=== PATIENT | male | born 1955 | race Caucasian/White ===

== ENCOUNTER 2016-12-31 18:00 | Emergency (ER) | payer BC ==
--- NOTE | 2016-12-31 18:12 | EDM.PDOC ---
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 Symptoms began about 21:00 hours yesterday evening at work with the patient leaving work early. He has had some mild nonproductive cough and nasal drainage during the last week with no known exposure to infection. He did receive an influenza booster this season. The patient denies any chest pain/pressure, heart flutter, dizziness, orthostasis, orthopnea, diaphoresis, paresthesias, recent decreased exercise tolerance, or any other anginal-type symptoms. No recent history of abdominal pain, heartburn, nausea, diarrhea, melena, gross hematochezia, or any food intolerance, including fatty foods, etc.. Onset: Gradual Onset Date: 12/31/16 Onset Time: 21:00 Duration: Getting Worse, Other (As above) Location: Reports: Generalized (Arthralgias) Quality: Reports: Ache, Same as Previous Episode Severity: Moderate Improves with: Reports: None Worsens with: Reports: None Context: Reports: Other (As above) Associated Symptoms: Reports: Cough, Fever/Chills. Denies: Confusion, Chest Pain, cough w sputum, Diaphoresis, Headaches, Loss of Appetite, Malaise, Nausea/ Vomiting, Rash, Seizure, Shortness of Breath, Syncope, Weakness Treatments [employer]: Reports: Other (see below) (None) Sore Throat Pain Score (Numeric/FACES): 8 - Related Data Allergies Allergy/AdvReac Type Severity Reaction Status Date / Time No Known Allergies Allergy Verified 12/31/16 18:24 Home Meds: Home Meds Aspirin [Ecotrin] 81 mg PO DAILY 05/11/14 [History] Ubidecarenone [Co Q-10] 1 tab PO DAILY 05/10/15 [History] Cholecalciferol (Vitamin D3) [Vitamin D3] 5,000 unit PO DAILY 05/25/15 [History] Doxylamine Succinate [Unisom Sleep Aid] 25 mg PO BEDTIME PRN 05/22/16 [History] Flaxseed Oil [Flax Oil] 1,000 mg PO TID 05/22/16 [History] Glucosamine HCl [Glucosamine] 1 cap PO BID 05/22/16 [History] Simvastatin [Zocor] 40 mg PO DAILY 05/22/16 [History] Calcium Carbonate/Vitamin D3 [Calcium 600 + Vit D 400 Softgl] 1 tab PO DAILY [History] Past Medical History HEENT History: Reports: Impaired Vision, Other (See Below). Denies: Allergic Rhinitis, Hard of Hearing Other HEENT History: Wears glasses Cardiovascular History: Reports: High Cholesterol Respiratory History: Reports: COPD, Other (See Below) Other Respiratory History: COPD by chest x-ray Gastrointestinal History: Reports: Colon Polyp, Other (See Below). Denies: Gastritis, GERD, Pancreatitis, PUD Other Gastrointestinal History: History of recurrent colonic polyps with tubular adenoma with high grade dysplasia at 30 cm on 05/11/15, tubular adenoma at 70 cm, 30 cm, and cecal region on 05/12/14, subsequent excision of tubular adenoma at 60 cm on 05/23/16 Genitourinary History: Reports: BPH, Other (See Below) Other Genitourinary History: History of prostate cancer as below, left-sided hydrocele Musculoskeletal History: Reports: Arthritis, Back Pain, Chronic, Fracture, Osteoarthritis, Other (See Below). Denies: Gout, RA, SLE Other Musculoskeletal History: Comminuted fracture of the tuft of digit #2 of the right hand on 05/25/15, right ankle fracture at age 17, left ankle fracture at age 25, right fifth finger fracture in 2013 Neurological History: Reports: Neuropathy, Peripheral, Other (See Below). Denies: Concussion, CVA, Headaches, Chronic, Head Trauma, Migraines, TIA, Vertigo Other Neuro History: Peripheral neuropathy in hands with possibility of carpal tunnel syndrome Psychiatric History: Reports: Addiction, Anxiety, Depression Other Psychiatric History: Hx. of alcohol abuse Endocrine/Metabolic History: Reports: Obesity/BMI 30+. Denies: Diabetes, Type I , Diabetes, Type II, Hypothyroidism, IDDM Hematologic History: Reports: None. Denies: Anemia, B12 Deficiency, Blood Transfusion(s), Iron Deficiency Immunologic History: Reports: None. Denies: AIDS, HIV, SLE Oncologic (Cancer) History: Reports: Colon, Prostate Other Oncologic History: Recurrent Tubular adenomas with high grade dysplasia on 05/11/15 and 05/12/2014, prostate cancer in 2012 requiring surgery as below Dermatologic History: Reports: None - Infectious Disease History Infectious Disease History: Reports: Chicken Pox, Measles, Mumps. Denies: Shingles - Past Surgical History HEENT Surgical History: Reports: Oral Surgery, Other (See Below) Other HEENT Surgeries/Procedures: [place] teeth extraction in his 30s GI Surgical History: Reports: Colonoscopy, Hernia, Inguinal, Polypectomy, Other (See Below) Other GI Surgeries/Procedures: Last colonoscopy on 05/23/16 with previous evaluations on 05/11/15 and 05/12/14 Female Surgical History: Reports: Other (See Below) Other Female Surgeries/Procedures: CyberKnife surgery for prostate cancer in 2012 - Past Imaging History Past Imaging History: Reports: Ultrasound (Scrotal ultrasound on 04/22/16) Social & Family History - Family History Oncologic: Reports: Colon, Other (See Below) Other Oncologic Family History: Mother with history of colon cancer - Tobacco Use Smoking Status *Q: Current Every Day Smoker Years of Tobacco use: 2 Packs/Tins Daily: 0.5 Used Tobacco, but Quit: Yes Second Hand Smoke Exposure: No Second Hand Smoke Education Provided: No - Caffeine Use Caffeine Use: Reports: Coffee (10 cups per day), Soda (4 sodas per day). Denies : Energy Drinks, Tea - Alcohol Use Alcohol Use History: Yes Days Per Week of Alcohol Use: 0 (Previous DWI in 2003, previous inpatient alcohol treatment in 1978) Number of Drinks Per Day: 0 (Hard liquor) Total Drinks Per Week: 0 Date/Time of Last Drink Comment: No apparent use for about one year Alcohol Use in Last Twelve Months: Yes - Recreational Drug Use Recreational Drug Use: No Drug Use in Last 12 Months: No Recreational Drug Type: Denies: Amphetamines (Speed), Cocaine, Heroin, Inhalants (Glues, Solvents, Aerosols), LSD (Acid), Marijuana/Hashish, Methamphetamine, Morphine - Living Situation & Occupation Living situation: Reports: (Second in 2005 with no children from this marriage, from first in 1981 with no children from that marriage), with Family Occupation: Employed ([employer]) ED ROS GENERAL - Review of Systems Review Of Systems: ROS reveals no pertinent complaints other than HPI. ED EXAM, GENERAL - Physical Exam Exam: See Below Exam Limited By: No Limitations General Appearance: Alert, WD/WN, No Apparent Distress Eye Exam: Bilateral Eye: EOMI, Normal Inspection (No nystagmus), PERRL Ears: Normal External Exam, Normal Canal, Hearing Grossly Normal, Normal TMs Nose: Normal Mucosa, No Blood, Clear Rhinorrhea Throat/Mouth: Normal Inspection, Normal Lips, Normal Teeth, Normal Gums, Normal Oropharynx, Normal Voice, No Airway Compromise. No: Dysphagia, Perioral Cyanosis Head: Atraumatic, Normocephalic. No: Facial Swelling, Facial Tenderness, Sinus Tenderness Neck: Normal Inspection, Supple, Non-Tender, Full Range of Motion. No: Lymphadenopathy (L), Lymphadenopathy (R), Thyromegaly Respiratory/Chest: No Respiratory Distress, Lungs Clear, Normal Breath Sounds, No Accessory Muscle Use, Chest Non-Tender. No: Wheezing, Pleural Rub, Retractions Cardiovascular: Normal Peripheral Pulses, Regular Rate, Rhythm, No Edema, No Gallop, No JVD, No Murmur, No Rub. No: Gallop/S3, Gallop/S4, Friction Rub Peripheral Pulses: 4+: Radial (L), Radial (R) GI/Abdominal: Normal Bowel Sounds, Soft, Non-Tender, No Organomegaly, No Distention, No Abnormal Bruit, No Mass, Other (Obese). No: Guarding (Male) Exam: Deferred Rectal (Males) Exam: Deferred Back Exam: Normal Inspection, Full Range of Motion. No: CVA Tenderness (L), CVA Tenderness (R), Muscle Spasm Extremities: Normal Inspection, Normal Range of Motion, Non-Tender, No Pedal Edema, Normal Capillary Refill. No: Josseline's Sign Neurological: Alert, Oriented, CN II-XII Intact, Normal Cognition, Normal Gait, No Motor/Sensory Deficits Psychiatric: Normal Affect, Normal Mood Skin Exam: Warm, Dry, Intact, Normal Color, No Rash. No: Diaphoretic, Wound/ Incision Lymphatic: No Adenopathy Course - Vital Signs Last Recorded V/S: Last Vital Signs Temp 38.3 C H 12/31/16 18:30 Pulse 100 06/27/17 18:30 Resp 22 H 12/31/16 18:30 BP 132/75 12/31/16 18:30 Pulse Ox 92 L 12/31/16 18:30 Vital Signs - 24 hr 12/31/16 12/31/16 18:29 18:30 Temperature [ 38.3 C H 38.3 C H Temporal] Pulse, 100 100 Peripheral [ Right Pulse Oximetry] Respiratory 22 H 22 H Rate Blood Pressure 132/75 132/75 [Right Upper Arm] O2 Sat by Pulse 92 L 92 L Oximetry - Orders/Labs/Meds Orders: Active Orders 24 hr Category Date Time Status CULTURE STREP A CONFIRMATION [] Stat Lab 12/31/16 17:53 Results STREP SCRN A RAPID W CULT CONF [] Stat Lab 12/31/16 17:53 Results Obtain Past Medical Record [OM.PC] Routine Oth 12/31/16 18:12 Active Labs: Microbiology 12/31/16 17:53 Influenza Type A Antigen Screen - Final Nasal, Right NEGATIVE INFLUENZA A VIRUS AG Influenza Type B Antigen Screen - Final NEGATIVE INFLUENZA B VIRUS AG 12/31/16 17:53 Group A Streptococcus Rapid Screen - Final Throat NEGATIVE STREP A SCREEN Meds: Medications Discontinued Medications Generic Name Dose Route Start Last Admin Trade Name Freq PRN Reason Stop Dose Admin Ketorolac Tromethamine 60 mg 12/31/16 18:35 12/31/16 18:49 Toradol IM 12/31/16 18:36 60 mg ONETIME ONE Administration - Radiology Interpretation Free Text/Narrative:: None Departure - Departure Time of Disposition: 19:00 Disposition: Home, Self-Care 01 Clinical Impression: Osteoarthritis, Tubular adenoma of colon URI (upper respiratory infection) Qualifiers: URI type: unspecified viral URI Qualified Code(s): J06.9 - Acute upper respiratory infection, unspecified Hyperlipidemia Qualifiers: Hyperlipidemia type: Mixed hyperlipidemia Qualified Code(s): E78.2 - Mixed hyperlipidemia - Discharge Information Referrals: PCP,Unknown [Primary Care Provider] - Forms: ED Department Discharge Additional Instructions: 1. Follow up with your regular provider in 10-14 days as needed, if symptoms persist. 2. Tylenol 650 mg by mouth every 4 hours and/or OTC ibuprofen 2-3 tabs by mouth every 6 hours with food as directed./needed. Next dose of ibuprofen in 6 hours as needed secondary to medications given in the emergency room 3. [place] diet including encouragement of oral fluids such as sports drinks, etc. for 24-48 hours as directed. Advance to low-fat, low-cholesterol diet as tolerated thereafter. 4. Work excuse- See Form - Problem List & Annotations (1) URI (upper respiratory infection) SNOMED Code(s): 54339712 Code(s): J06.9 - ACUTE UPPER RESPIRATORY INFECTION, UNSPECIFIED Status: Acute Priority: High Onset Date: ~12/30/16 Annotation/Comment:: Symptomatic relief for now. Work excuse provided starting from yesterday evening with [employer] form completed. IM Toradol given for his fever and generalized arthralgias Qualifiers: URI type: unspecified viral URI Qualified Code(s): J06.9 - Acute upper respiratory infection, unspecified; B97.89 - Other viral agents as the cause of diseases classified elsewhere (2) Osteoarthritis SNOMED Code(s): 362932429 Code(s): M19.90 - UNSPECIFIED OSTEOARTHRITIS, UNSPECIFIED SITE Status: Chronic Priority: Medium Annotation/Comment:: Stable chronic low back pain by patient history (3) Hyperlipidemia SNOMED Code(s): 84790092 Code(s): E78.5 - HYPERLIPIDEMIA, UNSPECIFIED Status: Chronic Priority: Low Annotation/Comment:: Stable by patient history. Currently under therapy. He would benefit from weight loss in moderation Qualifiers: Hyperlipidemia type: unspecified Qualified Code(s): E78.5 - Hyperlipidemia , unspecified - Problem List Review Problem List Initiated/Reviewed/Updated: Yes - My Orders Last 24 Hours: My Active Orders 12/31/16 17:53 CULTURE STREP A CONFIRMATION [RM] Stat STREP SCRN A RAPID W CULT CONF [RM] Stat 12/31/16 18:12 Obtain Past Medical Record [OM.PC] Routine - Assessment/Plan Last 24 Hours: My Active Orders 12/31/16 17:53 CULTURE STREP A CONFIRMATION [RM] Stat STREP SCRN A RAPID W CULT CONF [RM] Stat 12/31/16 18:12 Obtain Past Medical Record [OM.PC] Routine Assessment:: As above Plan: As above. Extensive precautions were given to the patient, who is in agreement with the treatment plan. See Patient Instructions for further treatment and plan.
[2016-12-31 18:30] VITALS: BP 132/75
[2016-12-31] MEDS ORDERED: Ketorolac 60 MG/2 ML SDV IM ONE (18:35)
== END 2016-12-31 19:00 | disposition home or self-care (01) ==
LOC: LL.ED 18:00
DX: J06.9 Acute upper respiratory infection, unspecified (principal); M19.90 Unspecified osteoarthritis, unspecified site; E78.2 Mixed hyperlipidemia; H54.7 Unspecified visual loss; J44.9 Chronic obstructive pulmonary disease, unspecified; E66.9 Obesity, unspecified; F17.210 Nicotine dependence, cigarettes, uncomplicated; Z79.82 Long term (current) use of aspirin; Z79.899 Other long term (current) drug therapy; Z98.890 Other specified postprocedural states
CPT/HCPCS: 87081; 87430; 87804; 96372; 99284; J1885

== ENCOUNTER 2017-10-03 16:23 | Emergency (ER) | payer BC ==
[2017-10-03 16:35] VITALS: BP 98/70
--- NOTE | 2017-10-03 16:37 | EDM.PDOC ---
ED HPI GENERAL MEDICAL PROBLEM - General Chief Complaint: Laceration Stated Complaint: laceration Time Seen by Provider: 10/03/17 16:30 Source of Information: Reports: Patient, Old Records ([facility] chart/EMR) History Limitations: Reports: No Limitations - History of Present Illness INITIAL COMMENTS - FREE TEXT/NARRATIVE: The patient drove himself to the emergency room via private automobile for evaluation of a laceration on his right wrist, which he accidentally cut on his front steps at home on the stairs when he slipped on the ice at about 15:30 hours this afternoon. No history of foreign body, paresthesias, neurological deficits, head injury, visual changes, loss of consciousness, change in mental status, neck/back pain, or other complaints or injuries. Last DTaP , which was confirmed by the nurse today through [facility]. The patient denies any chest pain/pressure, heart flutter, dizziness, orthostasis, orthopnea, diaphoresis, paresthesias, recent decreased exercise tolerance, or any other anginal-type symptoms. No recent history of abdominal pain, heartburn, nausea, diarrhea, melena, gross hematochezia, or any food intolerance, including fatty foods, etc.. The patient also denies any recent fever, cough, wheezing, dyspnea , etc.. He did clean out the laceration with rubbing alcohol and hydrogen peroxide with dressing placed prior to arrival. Onset: Today, Sudden Onset Date: 10/03/17 Onset Time: 15:30 Duration: Constant Location: Reports: Upper Extremity, Right. Denies: Head, Face, Neck, Chest, Abdomen, Back, Pelvis, Upper Extremity, Left, Lower Extremity, Left, Lower Extremity, Right, Radiates to Quality: Reports: Sharp, Stabbing, Throbbing Severity: Moderate Improves with: Reports: Rest Worsens with: Reports: Movement Context: Reports: Trauma (As above) Associated Symptoms: Denies: Confusion, Chest Pain, Cough, Diaphoresis, Fever/ Chills, Malaise, Nausea/Vomiting, Rash, Seizure, Shortness of Breath, Syncope, Weakness Treatments [employer] COMPLAINT SERVICE: Reports: Dressing(s), Other (see below) (As above) Right Wrist Pain Score (Numeric/FACES): 6 - Related Data Allergies Allergy/AdvReac Type Severity Reaction Status Date / Time No Known Allergies Allergy Verified 10/03/17 16:31 Home Meds: Home Meds Aspirin [Ecotrin] 81 mg PO DAILY 05/11/14 [History] Ubidecarenone [Co Q-10] 1 tab PO DAILY 05/10/15 [History] Cholecalciferol (Vitamin D3) [Vitamin D3] 5,000 unit PO DAILY 05/25/15 [History] Doxylamine Succinate [Unisom Sleep Aid] 25 mg PO BEDTIME PRN 05/22/16 [History] Flaxseed Oil [Flax Oil] 1,000 mg PO TID 05/22/16 [History] Glucosamine HCl [Glucosamine] 1 cap PO BID 05/22/16 [History] Simvastatin [Zocor] 40 mg PO BEDTIME 05/22/16 [History] Calcium Carbonate/Vitamin D3 [Calcium 600 + Vit D 400 Softgl] 1 tab PO DAILY [History] Naproxen Sodium [Aleve] 220 mg PO BID PRN 10/03/17 [History] Past Medical History HEENT History: Reports: Impaired Vision, Other (See Below). Denies: Allergic Rhinitis, Cataract, Glaucoma, Hard of Hearing, Macular Degeneration, Retinal Detachment Other HEENT History: Wears glasses Cardiovascular History: Reports: High Cholesterol. Denies: Afib, Aneurysm, Arrhythmia, Blood Clots/VTE/DVT, CAD, Cardiomyopathy, Heart Failure, Heart Murmur, Hypertension, PA, PVD, Syncope Respiratory History: Reports: COPD, Other (See Below). Denies: Asthma, Intubation, Difficult, Intubation, Previous, PE, Pneumothorax, Sleep Apnea, TB Other Respiratory History: COPD by chest x-ray Gastrointestinal History: Reports: Colon Polyp, Other (See Below). Denies: Celiac Disease, Cholelithiasis, Chronic Constipation, Chronic Diarrhea, Fecal Incontinence, Gastritis, GERD, Hepatitis, Hiatal Hernia, Irritable Bowel Syndrome, Jaundice, Pancreatitis, PUD Other Gastrointestinal History: History of recurrent colonic polyps with tubular adenoma with high grade dysplasia at 30 cm on 05/11/15, tubular adenoma at 70 cm, 30 cm, and cecal region on 05/12/14, subsequent excision of tubular adenoma at 60 cm on 05/23/16 Genitourinary History: Reports: BPH, Other (See Below). Denies: Acute Renal Failure, Chronic Renal Insuffiency, Dialysis, Renal Calculus, STD, Urinary Incontinence, UTI, Recurrent Other Genitourinary History: History of prostate cancer as below, left-sided hydrocele Musculoskeletal History: Reports: Arthritis, Back Pain, Chronic, Fracture, Osteoarthritis, Other (See Below). Denies: Amputation, Gout, Neck Pain, Chronic , RA, SLE Other Musculoskeletal History: Comminuted fracture of the tuft of digit #2 of the right hand on 05/25/15, right ankle fracture at age 17, left ankle fracture at age 25, right fifth finger fracture in 2012. Right clavicular fracture in the Neurological History: Reports: Neuropathy, Peripheral, Other (See Below). Denies: Cerebral Aneurysms, Concussion, CVA, Headaches, Chronic, Head Trauma, Migraines, MS, Parkinson's, Seizure, TIA, Vertigo Other Neuro History: Peripheral neuropathy in hands with possibility of carpal tunnel syndrome Psychiatric History: Reports: Addiction, Anxiety, Depression, Psych Hospitalization(s). Denies: Abuse, Victim of, ADD, ADHD, PTSD, Suicide Attempt , Suicidal Ideation Other Psychiatric History: Hx. of alcohol abuse with inpatient treatment as below Endocrine/Metabolic History: Reports: Obesity/BMI 30+. Denies: Diabetes, Type I , Diabetes, Type II, Diabetes Mellitus, Type 3c, Hypothyroidism, IDDM Hematologic History: Reports: None. Denies: Anemia, B12 Deficiency, Blood Transfusion(s), Iron Deficiency Immunologic History: Reports: None. Denies: AIDS, HIV, SLE Oncologic (Cancer) History: Reports: Colon, Prostate. Denies: Basal Cell Carcinoma, Hodgkin's Lymphoma, Lymphoma, Malignant Melanoma, Metastatic, Non- Hodgkin's Lymphoma, Squamous Cell Carcinoma Other Oncologic History: Recurrent Tubular adenomas with high grade dysplasia on 05/11/15 and 05/12/2014, prostate cancer in 2012 requiring surgery as below Dermatologic History: Reports: None. Denies: Eczema, Psoriasis - Infectious Disease History Infectious Disease History: Reports: Chicken Pox, Measles, Mumps. Denies: C- Difficile, Meningitis, Mononucleosis, MRSA, Pertussis (Whooping Cough), Rheumatic Fever, Rubella, Scarlet Fever, Shingles, TB, VRE - Past Surgical History Head Surgeries/Procedures: Reports: None HEENT Surgical History: Reports: Oral Surgery, Other (See Below). Denies: Adenoidectomy, Cataract Surgery, Eye Surgery, Laser Surgery, LASIK, Myringotomy w Tube(s), Naso-Sinus Surgery, Tonsillectomy Other HEENT Surgeries/Procedures: [place] teeth extraction in his 30s Cardiovascular Surgical History: Reports: None. Denies: Varicose Respiratory Surgical History: Reports: None. Denies: Thoracentesis GI Surgical History: Reports: Colonoscopy, Hernia, Inguinal, Polypectomy, Other (See Below). Denies: Appendectomy, Cholecystectomy, EGD, Hernia, Abdominal, Hernia Repair/Other Other GI Surgeries/Procedures: Last colonoscopy on 05/23/16 with previous evaluations on 05/11/15 and 05/12/14 Female Surgical History: Reports: Other (See Below) Other Female Surgeries/Procedures: CyberKnife surgery for prostate cancer in 2011 Male Surgical History: Reports: Circumcision, Other (See Below). Denies: Vasectomy Other Male Surgeries/Procedures: CyberKnife surgery for prostate cancer in 2011. Circumcision as an . Endocrine Surgical History: Reports: None Neurological Surgical History: Denies: C-Spine, Discectomy, Laminectomy, Lumbar Spine, Sacral Spine, Spinal Fusion Musculoskeletal Surgical History: Reports: None. Denies: Arthroscopic Procedure , Carpal Tunnel, Ganglion Cyst, Joint Replacement, Knee Replacement, ORIF Oncologic Surgical History: Reports: None Dermatological Surgical History: Reports: None - Past Imaging History Past Imaging History: Reports: Ultrasound (Scrotal ultrasound on 04/22/16) Social & Family History - Family History Oncologic: Reports: Colon, Other (See Below) Other Oncologic Family History: Mother with history of colon cancer - Tobacco Use Smoking Status *Q: Current Every Day Smoker Years of Tobacco use: 2 Packs/Tins Daily: 0.5 Packs/Tins Daily Comment: Smoked as a teenager Used Tobacco, but Quit: Yes Smoking Cessation Information Provided To Patient: No Second Hand Smoke Exposure: No Second Hand Smoke Education Provided: No - Caffeine Use Caffeine Use: Reports: Coffee (10 cups per day). Denies: Energy Drinks, Soda, Tea - Alcohol Use Alcohol Use History: Yes Days Per Week of Alcohol Use: 0 (Previous DWI in 2003, previous inpatient alcohol treatment in 1978) Number of Drinks Per Day: 0 (Hard liquor) Total Drinks Per Week: 0 Alcohol Use in Last Twelve Months: No - Recreational Drug Use Recreational Drug Use: No Drug Use in Last 12 Months: No Recreational Drug Type: Denies: Amphetamines (Speed), Cocaine, Heroin, Inhalants (Glues, Solvents, Aerosols), LSD (Acid), Marijuana/Hashish, Methamphetamine, Morphine, Oxycodone - Living Situation & Occupation Living situation: Reports: (Second in 2005 with no children from this marriage, from first in 1981 with no children from that marriage), with Family Occupation: Employed ([employer]) ED ROS GENERAL - Review of Systems Review Of Systems: ROS reveals no pertinent complaints other than HPI. ED EXAM, SKIN/RASH Exam: See Below Exam Limited By: No Limitations General Appearance: Alert, WD/WN, No Apparent Distress Head: Atraumatic, Normocephalic Neck: Normal Inspection, Supple, Non-Tender, Full Range of Motion. No: Lymphadenopathy (L), Lymphadenopathy (R), Thyromegaly Respiratory/Chest: No Respiratory Distress, Lungs Clear, Normal Breath Sounds, No Accessory Muscle Use, Chest Non-Tender. No: Pleural Rub, Retractions Cardiovascular: Normal Peripheral Pulses, Regular Rate, Rhythm, No Edema, No Gallop, No JVD, No Murmur, No Rub. No: Gallop/S3, Gallop/S4, Friction Rub Peripheral Pulses: 2+: Radial (L), Radial (R) GI/Abdominal: Normal Bowel Sounds, Soft, Non-Tender, No Organomegaly, No Distention, No Abnormal Bruit, No Mass, Pelvis Stable, Other (Obese). No: Guarding (Male) Exam: Deferred Rectal (Males) Exam: Deferred Back Exam: Normal Inspection, Full Range of Motion. No: CVA Tenderness (L), CVA Tenderness (R), Muscle Spasm Extremities: Normal Range of Motion, No Pedal Edema, Normal Capillary Refill, Other (2 cm in length superficial laceration over the mid aspect of the flexor surface of the right wrist with minimal localized tenderness but no foreign body , significant vascular/neurological involvement, etc.). No: Josseline's Sign Neurological: Alert, Oriented, CN II-XII Intact, Normal Cognition, Normal Gait, No Motor/Sensory Deficits Psychiatric: Normal Affect, Normal Mood Skin: Warm, Normal Color, No Rash, Wound/Incision (As above). No: Lymphangitis , Tattoo(s) Location, Skin: Upper Extremity, Right Characteristics: Linear. No: Erythematous Associated features: Tenderness (Mild). No: Swelling, Lymphangitis Lymphatic: No Adenopathy ED SKIN PROCEDURES - Laceration/Wound Repair Right Distal Ventral Wrist Lac/Wound length In cm: 2.0 Appearance: Superficial Distal NVT: Neuro & Vascular Intact, No Tendon Injury Anesthetic Type: Local Local Anesthesia - Lidocaine (Xylocaine): 1% Plain Local Anesthetic Volume: Other (8 mL) Skin Prep: Providone-Iodine (Betadine) Exploration/Debridement/Repair: Wound Explored, In a Bloodless Field, Explored to Base, No Foreign Material Found, Other (Minimal subcutaneous fat removed) Closed with: Sutures Suture Size: 4-0 # of Sutures: 4 Suture Type: Nylon, Interrupted, Simple Drain Placement: No Sterile Dressing Applied: Nurse Tetanus Status Addressed: Yes Complications: No Course - Vital Signs Last Recorded V/S: Last Vital Signs Temp 36.0 C 10/03/17 16:34 Pulse 70 10/03/17 16:34 Resp 20 10/03/17 16:34 BP 98/70 10/03/17 16:34 Pulse Ox 100 10/03/17 16:34 Vital Signs - 24 hr 10/03/17 16:34 Temperature [ 36.0 C Oral] Pulse, 70 Peripheral [ Left Pulse Oximetry] Respiratory 20 Rate Blood Pressure 98/70 [Left Upper Arm ] O2 Sat by Pulse 100 Oximetry - Orders/Labs/Meds Orders: Active Orders 24 hr Category Date Time Status Obtain Past Medical Record [OM.PC] Routine Oth 10/03/17 16:38 Active Labs: None Meds: Medications Discontinued Medications Generic Name Dose Route Start Last Admin Trade Name Jordon PRN Reason Stop Dose Admin Lidocaine HCl 5 ml 10/03/17 16:38 10/03/17 16:45 Xylocaine-Mpf 1% INJECT 10/03/17 16:39 5 ml ONETIME ONE Administration Lidocaine HCl 5 ml 10/03/17 16:38 10/03/17 16:45 Xylocaine-Mpf 1% INJECT 10/03/17 16:39 5 ml ONETIME ONE Administration Neomycin/Polymyxin/Bacitracin 1 each 10/03/17 16:38 10/03/17 16:45 Triple Antibiotic Oint TOP 10/03/17 16:39 1 each ONETIME ONE Administration - Radiology Interpretation Free Text/Narrative:: None Departure - Departure Time of Disposition: 17:25 Disposition: Home, Self-Care 01 Condition: Good Clinical Impression: Laceration, Osteoarthritis Hyperlipidemia Qualifiers: Hyperlipidemia type: unspecified Qualified Code(s): E78.5 - Hyperlipidemia, unspecified - Discharge Information Instructions: Stitches, Webster, or Adhesive Wound Closure, Aoli-ip-Luge, Laceration Care, Adult, [id number] Referrals: Raghu Hardy NP [Primary Care Provider] - Forms: ED Department Discharge, ED Return to Work/School Form Additional Instructions: 1. Followup with your regular provider in 10-14 days as directed for removal of 4 stitches. 2. Antibacterial soap wash/soak with subsequent antibacterial dressing such as Neosporin, etc. as directed 2 times per day until the wound or laceration site completely heals. Keep the area clean and dry with activity restrictions as discussed. 3. Tylenol 650 mg by mouth every 4 hours by mouth as directed./needed. 4. Work excuse- See Form - Problem List & Annotations (1) Laceration SNOMED Code(s): 069664696 Code(s): T14.8 - OTHER INJURY OF UNSPECIFIED BODY REGION * DO NOT USE * Status: Acute Priority: High Onset Date: 10/03/17 Annotation/Comment:: Excellent results with laceration repair as above. Tetanus booster is up-to- date. [employer]cat work excuse completed. Wound care, activity restrictions, etc. discussed (2) Hyperlipidemia SNOMED Code(s): 87381764 Code(s): E78.5 - HYPERLIPIDEMIA, UNSPECIFIED Status: Chronic Priority: Medium Annotation/Comment:: Stable by patient history. Currently under therapy. He would benefit from weight loss in moderation Qualifiers: Hyperlipidemia type: unspecified Qualified Code(s): E78.5 - Hyperlipidemia , unspecified (3) Osteoarthritis SNOMED Code(s): 514324835 Code(s): M19.90 - UNSPECIFIED OSTEOARTHRITIS, UNSPECIFIED SITE Status: Chronic Priority: Medium Annotation/Comment:: Stable chronic low back pain by patient history - Problem List Review Problem List Initiated/Reviewed/Updated: Yes - My Orders Last 24 Hours: My Active Orders 10/03/17 16:38 Obtain Past Medical Record [OM.PC] Routine - Assessment/Plan Last 24 Hours: My Active Orders 10/03/17 16:38 Obtain Past Medical Record [OM.PC] Routine Assessment:: As above Plan: As above.
[2017-10-03] MEDS ORDERED: Bacitracin/Neomycin/Polymyxin B Oint 0.9 GM U/D Packet TOP ONE (16:38)
== END 2017-10-03 17:30 | disposition home or self-care (01) ==
LOC: LL.ED 16:23
DX: S61.511A Laceration without foreign body of right wrist, initial encounter (principal); E78.00 Pure hypercholesterolemia, unspecified; E78.5 Hyperlipidemia, unspecified; M19.90 Unspecified osteoarthritis, unspecified site; J44.9 Chronic obstructive pulmonary disease, unspecified; E66.9 Obesity, unspecified; W45.8XXA Other foreign body or object entering through skin, initial encounter; W00.0XXA Fall on same level due to ice and snow, initial encounter; Z79.82 Long term (current) use of aspirin; Z79.899 Other long term (current) drug therapy; Y92.009 Unspecified place in unspecified non-institutional (private) residence as the place of occurrence of the external cause; F17.210 Nicotine dependence, cigarettes, uncomplicated; Z68.35 Body mass index [BMI] 35.0-35.9, adult
CPT/HCPCS: 12001; 99283

== ENCOUNTER 2018-07-23 12:30 | Day surgery (SDC) | payer BC ==
[~2018-07-23 12:30] MED LIST: Lactated Ringers 1,000 ML IV SCH; Midazolam 1 MG/ML 2 ML SDV ONE; Propofol 200 MG/20 ML SDV ONE; Sodium Chloride 0.9% 10 ML Syringe FLUSH PRN
--- NOTE | 2018-07-23 14:34 | PCM.PN ---
- General Info Date of Service: 07/23/18 - Review of Systems Systems Review Comment:: 63-year-old male referred by Dr. Tran for colonoscopy. The patient has a history of colon polyps. He is medically stable to proceed today. His recent history and physical is reviewed and no significant changes are noted. I discussed the proposed colonoscopy with the patient. He agrees to proceed accepting risks. - Patient Data Vitals - Most Recent: Last Vital Signs Temp 97.9 F 07/23/18 13:37 Pulse 55 L 07/23/18 13:37 Resp 16 07/23/18 13:37 BP 96/67 07/23/18 13:37 Pulse Ox 94 L 07/23/18 13:37 Weight - Most Recent: 104.326 kg Med Orders - Current: Current Medications Lactated Ringer's (Ringers, Lactated) 1,000 mls @ 999 mls/hr IV .BOLUS TAMIKO Last Admin: 07/23/18 13:32 Dose: 999 mls/hr Sodium Chloride (Saline Flush) 10 ml FLUSH ASDIRECTED PRN PRN Reason: Keep Vein Open Discontinued Medications Midazolam HCl (Versed 1 Mg/Ml) Confirm Administered Dose 2 mg .ROUTE .STK-MED ONE Stop: 07/23/18 08:19 Propofol (Diprivan 20 Ml) Confirm Administered Dose 200 mg .ROUTE .STK-MED ONE Stop: 07/23/18 08:19 - Problem List Review Problem List Initiated/Reviewed/Updated: Yes - Assessment Assessment:: history of colon polyps - Plan Plan:: colonoscopy
[2018-07-23] MEDS ORDERED: Propofol 200 MG/20 ML SDV ONE (15:23)
[2018-07-23] MEDS ORDERED: Midazolam 1 MG/ML 2 ML SDV ONE (15:23)
--- NOTE | 2018-07-23 15:24 | PCM.OPNOTE ---
- General Post-Op/Procedure Note Date of Surgery/Procedure: 07/23/18 Operative Procedure(s): Colonoscopy with Polypectomy Pre Op Diagnosis: Small polyps in rectum. No other gross lesions seen but prep poor Post-Op Diagnosis: Colon Polyps Anesthesia Technique: MAC Primary Surgeon: Krzysztof Olmedo Pathology: Rectal Polyps Output, Urine Amount: 0 EBL in mLs: 0 Complications: None Condition: Good
[2018-07-23 17:05] VITALS: BP 114/62
--- NOTE | 2018-07-24 10:24 | OR ---
Date of Procedure: 07/23/2018 Referring Provider: Berry Tran MD PREOPERATIVE DIAGNOSIS: History of colon polyps. POSTOPERATIVE DIAGNOSES: Colon polyps. OPERATIONS PERFORMED: Colonoscopy with polypectomy. INDICATIONS FOR SURGERY: This 63-year-old male has a history of colon polyps and he is referred for surveillance colonoscopy. FINDINGS: Three small polyps were noted in the rectum, approximately 10 cm from the anal verge. These were 3 to 4 mm in size. No other gross lesions were seen in the remainder of the colon. The patient's prep was very poor and both large amounts of liquid and solid stool may have obscured small lesions. DESCRIPTION OF PROCEDURE: The patient was taken to the operating room. He was given intravenous sedation and with him in the left lateral decubitus position, digital rectal exam was performed showing no rectal masses. The Olympus colonoscope was inserted into the rectum and retroflexed examination of the rectal canal was performed. The above-described polyps were identified in the rectum. These were removed with a cautery snare. The 2 largest polyps were able to be retrieved and the smallest polyp was destroyed with a cautery. The scope was then carefully advanced under direct visualization through the entire length of the colon until the cecum was reached. This was difficult because of some tortuosity of the colon, but also because of the very poor prep. With persistence, however, the cecum was able to be safely reached. Cecal acquisition was confirmed by noting the ileocecal valve and appendiceal orifice. The light was also noted to transilluminate the abdominal wall in the right lower quadrant. The scope was then slowly withdrawn and examination as possible was carried out. No other gross lesions were seen during the exam. After the examination had been completed, the scope was removed and the patient was taken from the operating room in satisfactory condition. ESTIMATED BLOOD LOSS: 0. COMPLICATIONS: None. PROGNOSIS: Good. COMMENT: Future colonoscopies would require an extended period of clear liquids and probable GoLYTELY prep. GLORIA Olmedo MD /[id number]
== END 2018-07-23 16:13 | disposition home or self-care (01) ==
LOC: LL.SDS 12:30
PROVIDERS: ATTEND Surgery
DX: Z12.11 Encounter for screening for malignant neoplasm of colon (principal); K63.5 Polyp of colon; J30.9 Allergic rhinitis, unspecified; E78.5 Hyperlipidemia, unspecified; Z79.899 Other long term (current) drug therapy; Z87.891 Personal history of nicotine dependence
CPT/HCPCS: 45385; J2250; J2704; J7120

== ENCOUNTER 2019-02-11 09:30 | Day surgery (SDC) | payer MEDICARE ==
[~2019-02-11 09:30] MED LIST changes: -Midazolam 1 MG/ML 2 ML SDV ONE; -Propofol 200 MG/20 ML SDV ONE
[2019-02-11] MEDS ORDERED: Propofol 200 MG/20 ML SDV ONE ×2 (10:21→10:33)
--- NOTE | 2019-02-11 10:58 | PCM.OPNOTE ---
- General Post-Op/Procedure Note Date of Surgery/Procedure: 02/11/19 Operative Procedure(s): Colonoscopy with polypectomy Findings: 2 polyps Pre Op Diagnosis: Screening Post-Op Diagnosis: Same Anesthesia Technique: MAC Primary Surgeon: Juan David Aponte Complications: None Condition: Good
[2019-02-11 14:51] VITALS: BP 118/83; PULSE 65
--- NOTE | 2019-02-12 08:49 | OR ---
Date of Procedure: 02/11/2019 PREOPERATIVE DIAGNOSIS: Colon screening. POSTOPERATIVE DIAGNOSIS: Colon polyps. PROCEDURE: Colonoscopy with polypectomy. ANESTHESIA: IV sedation. DESCRIPTION OF PROCEDURE: The patient was brought to the procedure room where he was placed on his left side and IV sedation administered. Digital rectal exam was performed which was normal. Colonoscope was inserted and advanced to the level of the cecum without difficulty. Cecal position was confirmed by identifying the appendiceal lumen and ileocecal valve. Prep was good and surfaces were well visualized. In the proximal ascending colon, there was a 1 cm broad-based polyp removed with a cautery snare and retrieved in the polyp trap. The remaining ascending, transverse, and descending colon were normal. In the sigmoid colon at 35 cm, was a 6 mm sessile polyp removed with a cautery snare and also retrieved in the polyp trap. The remaining sigmoid colon and rectum were normal. Retroflexion was normal. Air was removed and the scope withdrawn. The patient tolerated the procedure well and returned to Recovery in stable condition. The patient will follow up with Leslie Villarreal next week for review of pathology report. If any of the polyps are adenomatous, he should undergo a repeat colonoscopy in 3 years. Otherwise, he could wait 10 years until his next colon screening. GLORIA ALICIA MD /[id number]
== END 2019-02-11 12:03 | disposition home or self-care (01) ==
LOC: LL.SDS 09:30
PROVIDERS: ATTEND Surgery
DX: K63.5 Polyp of colon (principal); E78.5 Hyperlipidemia, unspecified; Z79.899 Other long term (current) drug therapy; Z87.891 Personal history of nicotine dependence
CPT/HCPCS: 45385; J2704; J7120; 00812; 88305